=== PATIENT | female | born 1975 ===

== ENCOUNTER 2020-03-11 22:22 | Emergency (ER) | payer MEDICAID ==
[~2020-03-11] VITALS: Ht 172.7 cm; Wt 106.0 kg
[2020-03-11 22:37] VITALS: BP 135/84
--- NOTE | 2020-03-12 00:19 | NUR ---
ADE WRAP APPLIED TO LEFT ANKLE, PT INSTRUCTED ON ORTHO CARE, PT VERBALIZED UNDERSTANDING OF DC INSTRUCTIONS.
== END 2020-03-12 00:24 | disposition home or self-care (01) ==
LOC: ED 03-12
DX: G89.11 Acute pain due to trauma (principal); M25.572 Pain in left ankle and joints of left foot; X58.XXXA Exposure to other specified factors, initial encounter; Y93.89 Activity, other specified; Y92.410 Unspecified street and highway as the place of occurrence of the external cause; Y99.8 Other external cause status
CPT/HCPCS: 99284